=== PATIENT | female | born 2000 | race Caucasian/White ===

== ENCOUNTER 2022-06-15 03:44 | Inpatient (IN) ==
[2022-06-15] MEDS ORDERED: LIDOCAINE 1% LOCAL 20 ML VIAL INFIL PRN (09:00)
[2022-06-15] MEDS ORDERED: OXYTOCIN 30 UNITS/500 ML BAG IV PRN ×3 (09:00→19:09)
[2022-06-15 09:47] LABS: Hemoglobin 11.6 g/dl (12.0-16.0); Mean Corpuscular Hgb Conc 36.3 g/dL (32.0-36.0); Mean Corpuscular Volume 88.4 fL (80.0-100.0); Mean Platelet Volume 9.6 fL (9.4-12.3); Platelet Count 169 K/uL (130-400); RDW Coefficient of Variation 12.7 % (11.5-14.5); RDW Standard Deviation 41.2 fL (36.4-46.3); Red Blood Count 3.62 M/uL (3.93-5.22); White Blood Count 13.72 K/ul (4.8-10.8)
[2022-06-15] MEDS: LACTATED RINGER'S 1,000 ML IV PRN ×2 (11:00→14:07)
[2022-06-15] MEDS ORDERED: SODIUM CHLORIDE 0.9% INJ 10 ML VIAL ONE (11:04)
[2022-06-15] MEDS ORDERED: fentaNYL citrate 100 MCG/2 ML VIAL ONE (11:04)
[2022-06-15] MEDS ORDERED: BUPIVACAINE 0.25% 30 ML VIAL ONE (11:04)
[2022-06-15] MEDS ORDERED: ePHEDrine sulfate 50 MG/ML AMP ONE (11:04)
[2022-06-15] MEDS ORDERED: LIDOCAINE 2%/EPINEPHRINE 1:200,000 20 ML SDV ONE (11:04)
[2022-06-15] MEDS ORDERED: fentaNYL 2MCG/ML ROPIVACAINE 1.25MG/ML 100 ML BAG EPI ONE (11:05)
[2022-06-15] MEDS ORDERED: NALBUPHINE HCL INJ 10 MG/ML AMP IV PRN (11:27)
[2022-06-15] MEDS ORDERED: NALOXONE HCL 1 MG in SODIUM CHLORIDE 0.9% 1000ML 1,000 ML IV PRN (11:27)
[2022-06-15] MEDS ORDERED: fentaNYL 2MCG/ML ROPIVACAINE 1.25MG/ML 100 ML BAG EPI PRN (11:27)
[2022-06-15] MEDS ORDERED: diphenhydrAMINE 50 MG/ML VIAL IV PRN (11:27)
[2022-06-15] MEDS ORDERED: ePHEDrine sulfate 50 MG/ML AMP IV PRN (11:27)
[2022-06-15] MEDS ORDERED: NALOXONE HCL 0.4 MG/1 ML VIAL/CARP IV PRN (11:27)
--- NOTE | 2022-06-15 11:27 | Anesthesiology Consultation ---
Date of Service June 15, 2022 Assessment & Plan (1) Encounter for pre-operative examination: Chart Review Chart Review: Patient NOT seen in Pre Admission Testing and Acceptable Risk for Labor Epidural Consults Requested none History Height/Weight Height: 5 ft 4 in Weight: 70.76 kg Allergies Allergy/AdvReac Type Severity Reaction Status Date / Time No Known Allergies Allergy Verified 06/15/22 04:10 Medications Home Medications Medication Instructions Recorded Confirmed Last Taken vits no.124-ferrous fum 1 tab PO DAILY 06/15/22 06/15/22 Unknown 27 mg iron-folic acid 800 mcg tablet ( Vitamin) Active Medications Generic Name Dose Route Start Last Admin Trade Name Freq PRN Reason Stop Dose Admin Lactated Ringer's 1,000 mls @ 125 mls/hr 06/15/22 09:00 06/15/22 11:00 Lr IV 06/17/22 08:59 999 mls/hr .Q8H PRN Administration L&D Protocol Protocol Past Surgical History Surgical History Hx of tympanostomy Social History Smoking Status: Never smoker Hx Alcohol Use: No Hx Substance Use: No substance use type: does not use Physical Exam Vital Signs Last Vital Signs Temp 97.9 F 06/15/22 07:34 Pulse 96 H 06/15/22 07:34 Resp 20 06/15/22 07:34 BP 124/59 L 06/15/22 07:34 Testing Laboratory Results 06/15/22 09:25
[2022-06-15] MEDS ORDERED: miSOPROStoL 200 MCG TAB ONE (19:03)
[2022-06-15] MEDS ORDERED: oxyCODONE/ACETAMINOPHEN 5mg/325mg TAB PO PRN (19:09)
[2022-06-15] MEDS ORDERED: HYDROCORTISONE ACETATE 25 MG SUPP PR PRN (19:09)
[2022-06-15] MEDS ORDERED: bisacodyL 10 MG SUPP PR PRN (19:09)
[2022-06-15] MEDS ORDERED: BENZOCAINE 20% AER SPR 82.5 GM CAN EXT PRN (19:09)
[2022-06-15] MEDS ORDERED: DIPHTHERIA/TETANUS/PERTUSSIS 0.5 ML SYR/VIAL IM ONE (19:09)
[2022-06-15] MEDS ORDERED: miSOPROStoL 200 MCG TAB PR ONE (19:09)
[2022-06-15] MEDS ORDERED: ACETAMINOPHEN W/CODEINE #3 1 TAB PO PRN (19:09)
[2022-06-15] MEDS ORDERED: MEASLES, MUMPS & RUBELLA VIRUS VIAL SQ ONE (19:09)
[2022-06-15] MEDS ORDERED: ACETAMINOPHEN 325 MG TAB PO PRN (19:09)
--- NOTE | 2022-06-15 19:34 | Operative Report (OR) ---
DATE OF PROCEDURE: 08/16/2021. DELIVERY NOTE: The patient was followed in our office for care and delivery. She registere d somewhat late in her . The due date could not be firmly established. We did give her an expected due date of 06/16/2022. Blood type is AB positive. She is 1, para 1. She was admi tted in spontaneous labor. First time I checked her cervix was posterior 4 cm, about 100% effaced. She continued to labor and walked around. About noon, she requested and received epidural anesthesia. She obtained good pain relief. We then went on to augment her contractions, which were spaced out every 6-8 minutes with the Pitocin. Continued to turn up the Pitocin to get a good regular contractio n pattern. At about 6+ cm, membranes were ruptured surgically. There was moderate amount of meconium noted at this time. We continued to turn up the Pitocin. She went to full dilatation, pushed out a live male via direct occiput anterior position over an intact perineum. It took her about 2 hours to push the infant out. There was a nuchal cord, which was loose around the neck, and I delive red the with a nuchal cord around the neck. I then suctioned the mouth and the nose after the head was delivered. I allowed the cord to pulse for 1 minute. I then clamped the cord and the patie nt's mother cut the cord. I then obtained cord blood. With IV Pitocin running, I removed the placen ta intact and then repaired two lacerations. We had a deeper sulcus on the right side and a shallow sulcus on the left side. I started with a right sulcus. I identified the apex, anchored 2-0 Vicryl to approximate the vaginal mucosa out and to beyond the hymenal ring and then vertically approximated the labia with a continuous 2-0 Vicryl. I then checked the left side. This was a much smaller sulc us tear and that was repaired by identifying the top of the defect, running it out to beyond the hyme nal ring, and then tying and then starting at the apex of the tear on the left labia majora and did a running approximation to the hymenal ring. Following this, hemostasis was excellent. Vaginal exam was normal. Levator ani were approximated well. Sponges were removed. I then did a rectal exam and inserted 800 mcg of Cytotec. Estimated blood loss was 200 mL. The patient tolerated the procedure w maverick. Job ID: [id number]
[2022-06-15] MEDS: DOCUSATE SODIUM 100 MG CAP PO SCH (20:37)
[2022-06-15] MEDS: IBUPROFEN 600 MG TAB PO PRN (20:37)
[2022-06-16] MEDS: IBUPROFEN 600 MG TAB PO PRN ×3 (04:15→21:44)
[2022-06-16 07:44] LABS: Hematocrit (blood only) 31.3 % (34.1-44.9); Hemoglobin 10.9 g/dl (12.0-16.0); Mean Corpuscular Hemoglobin 30.9 pg (25.0-34.0); Mean Corpuscular Hgb Conc 34.8 g/dL (32.0-36.0); Mean Corpuscular Volume 88.7 fL (80.0-100.0); Mean Platelet Volume 9.6 fL (9.4-12.3); Platelet Count 160 K/uL (130-400); RDW Coefficient of Variation 12.8 % (11.5-14.5); RDW Standard Deviation 41.7 fL (36.4-46.3); Red Blood Count 3.53 M/uL (3.93-5.22); White Blood Count 13.11 K/ul (4.8-10.8)
[2022-06-16] MEDS: DOCUSATE SODIUM 100 MG CAP PO SCH ×2 (07:44→19:48)
[2022-06-16] MEDS: PRENATAL VITAMIN 1 TAB PO SCH (07:44)
--- NOTE | 2022-06-16 10:26 | Obstetrical Progress Note ---
Date of Service June 16, 2022 Assessment & Plan Admission and Anticipated Discharge Date Admission Date: June 15, 2022 Subjective abdomen soft and non tender no calf tenderness ambulating well vaginal bleeding scant hgb 10.9 Results & Data ([facility]) Vital Signs (Past 12 Hours) Vital Signs Temp Pulse Resp BP Pulse Ox O2 Del Method 06/16/22 07:34 36.9 C 70 16 108/71 98 Room Air 06/16/22 04:00 36.9 C 70 16 107/69 96 Room Air 06/15/22 22:30 37.5 C 75 16 115/60 99 Room Air
[2022-06-16] MEDS ORDERED: bisacodyL 5 MG TABEC PO SCH (20:00)
[2022-06-17 06:51] LABS: Hematocrit (blood only) 31.6 % (34.1-44.9); Hemoglobin 11.2 g/dl (12.0-16.0)
[2022-06-17] MEDS: PRENATAL VITAMIN 1 TAB PO SCH (07:45)
[2022-06-17] MEDS: IBUPROFEN 600 MG TAB PO PRN (07:45)
[2022-06-17] MEDS: DOCUSATE SODIUM 100 MG CAP PO SCH (07:45)
--- NOTE | 2022-06-17 08:58 | Obstetrical Progress Note ---
Date of Service June 17, 2022 Assessment & Plan Admission and Anticipated Discharge Date Admission Date: June 15, 2022 Subjective abdomen soft and non tender no calf tenderness ambulating well vaginal bleeding scant hgb 11.2 Results & Data ([facility]) Vital Signs (Past 12 Hours) Vital Signs Temp Pulse Resp BP Pulse Ox O2 Del Method 06/17/22 04:45 36.6 C 62 18 108/84 99 Room Air
== END 2022-06-17 11:45 | disposition home or self-care (01) | DRG 807 ==
LOC: OPB 03:44 → 4S1 03:57 → 4E2 22:30
DX: O70.0 First degree perineal laceration during delivery; Z3A.39 39 weeks gestation of pregnancy; Z37.0 Single live birth; O69.81X0 Labor and delivery complicated by cord around neck, without compression, not applicable or unspecified